=== PATIENT | female | born 1995 | race Caucasian/White ===

== ENCOUNTER → 2017-05-05 | Outpatient (CLI) | payer BC ==
[~2017-05-05] MED LIST: GADAVIST IV PRN
--- NOTE | 2017-05-05 10:42 | DIAGNOSTIC IMAGING REPORT ---
MRI OF THE ABDOMEN WITH AND WITHOUT CONTRAST CLINICAL HISTORY: Abdominal pain. Chronic steatorrhea. COMPARISON STUDY: No previous studies for comparison. TECHNIQUE: Utilizing a 1.5 Dayami magnet and dedicated coil, multiplanar, multiecho imaging of the abdomen was performed pre and postcontrast administration. Post contrast imaging was performed utilizing dynamic enhancement following intravenous injection of 7.5 cc of Gadavist. In addition, 3-D MRCP was performed. FINDINGS: Liver morphology is normal. No hepatic lesions are identified. There is no intra or extrahepatic biliary ductal dilatation. The common bile duct is diminutive, measuring 2 mm in caliber. No common bile duct calculi are identified. The course and caliber of the main pancreatic duct is normal. The pancreas is within normal limits. No pancreas lesion is present. There is no peripancreatic fluid. The spleen, adrenal glands and kidneys are normal. There is no hydronephrosis. There is no upper abdominal adenopathy or ascites. Visualized skeletal structures are unremarkable. Gallbladder is suboptimally assessed on this exam but no gallstones are identified. IMPRESSION: Normal MRI of the abdomen. No pancreatic abnormality identified. No biliary or pancreatic ductal dilatation. Electronically signed by: Manjeet Baxter M.D. 05/05/2017 10:40 AM Dictated Date/Time: 05/05/2017 9:35 AM
== END | disposition home or self-care (01) ==
LOC: C.MRI 08:14
PROVIDERS: ATTEND Internal Medicine Gastroenterology
DX: K90.9 Intestinal malabsorption, unspecified (principal)

== ENCOUNTER → 2017-07-11 | Outpatient (CLI) | payer BC, OTHER ==
--- NOTE | 2017-07-11 12:37 | DIAGNOSTIC IMAGING REPORT ---
RIGHT HIP UNILATERAL MIN 2 VIEWS CLINICAL HISTORY: 22 years-old Female presenting with right anterior hip pain for several months. TECHNIQUE: Frontal and frog-leg lateral views of the right hip were obtained. COMPARISON: None. FINDINGS: Hip joint congruent. No acute fracture or subluxation. No significant degenerative change. Normal mineralization. Regional soft tissues within normal limits. IMPRESSION: No osseous abnormality of the right hip. Electronically signed by: Shlomo Aleman M.D. 07/11/2017 12:36 PM Dictated Date/Time: 07/11/2017 12:35 PM
== END | disposition home or self-care (01) ==
LOC: C.RDSM 12:26
PROVIDERS: ATTEND Internal Medicine
DX: M25.551 Pain in right hip (principal)

== ENCOUNTER → 2017-11-13 | Outpatient (CLI) | payer BC, OTHER ==
--- NOTE | 2017-11-13 10:41 | DIAGNOSTIC IMAGING REPORT ---
FLUOROSCOPICALLY GUIDED RIGHT HIP ARTHROGRAM PRE-MRI CLINICAL HISTORY: PAIN IN RIGHT HIP COMPARISON STUDY: Conventional radiographic study dated 07/11/2017 FLUOROSCOPY TIME: 24 seconds. NUMBER OF FLUOROSCOPIC IMAGES: 1 FINDINGS: A timeout was performed. The risks the procedure were explained the patient informed consent was obtained. Patient prepped and draped in sterile fashion. The skin was anesthetized 1% lidocaine. Under fluoroscopic guidance, 20-gauge spinal needle was introduced into the capsule right hip. A mixture of Optiray 300, and Gadavist were instilled into the right hip. A fluoroscopic spot image confirmed intra-articular location of the contrast. A small air bubble is visualized within the joint. IMPRESSION: Successful pre-MRI right hip gadolinium arthrographic injection. Electronically signed by: Justin Lawson M.D. 11/13/2017 10:40 AM Dictated Date/Time: 11/13/2017 10:38 AM
--- NOTE | 2017-11-13 15:03 | DIAGNOSTIC IMAGING REPORT ---
R LOWER EXTREMITY JOINT W/ CLINICAL HISTORY: 22 years-old Female with PAIN IN RIGHT HIP. Acute right hip pain with tightness, clicking and popping. COMPARISON: Right hip radiographs 07/11/2017 TECHNIQUE: Multiplanar, multi sequence MRI of the right hip was performed following the intra-articular administration of solution containing gadolinium. FINDINGS: LABRUM: There is subtle mild irregularity with intermediate T2 signal noted involving the anterosuperior labrum as seen on image 14 series 6 and also on image 7 series 7 suggesting small labral tear. There is no chondral labral separation or paralabral cyst. BONE MARROW: Bone marrow signal is within normal limits. No evidence of avascular necrosis, fracture or transient osteoporosis. BURSAE: There is no evidence for iliopsoas or trochanteric bursitis. HIP JOINT: The cartilage overlying the acetabulum and femoral head is intact. There is no evidence for femoral-acetabular or ischiofemoral impingement syndrome. There is no joint effusion. No intraarticular loose body is evident. MUSCLES: Muscular signal and morphology is within normal limits. SCIATIC NERVE: The morphology and signal characteristics of the sciatic nerve appear normal. IMPRESSION: 1. Small tear of the anterosuperior labrum without displaced fragment, chondral labral separation or paralabral cyst. 2. No focal soft tissue or bone marrow edema or bursitis. The above report was generated using voice recognition software. It may contain grammatical, syntax or spelling errors. Electronically signed by: Sabino Trammell M.D. 11/13/2017 3:02 PM Dictated Date/Time: 11/13/2017 11:58 AM
== END | disposition home or self-care (01) ==
LOC: C.MRIBC 09:38
PROVIDERS: ATTEND Physician Assistant
DX: M25.551 Pain in right hip (principal); K90.9 Intestinal malabsorption, unspecified